=== PATIENT | male | born 1955 | race Caucasian/White ===

== ENCOUNTER 2017-06-05 10:44 | Inpatient (IN) | payer MEDICARE, OTHER ==
[2017-06-05] MEDS ORDERED: MIDAZOLAM 1 MG/ML 2 ML INJ (12:36)
[2017-06-05] MEDS ORDERED: GELATIN SIZE 100 SPONGE (13:43)
[2017-06-05] MEDS ORDERED: THROMBIN 5000 UNIT VIAL (13:43)
[2017-06-05] MEDS ORDERED: morphine 10 MG INJ (15:27)
[2017-06-05] MEDS ORDERED: hydrALAzine 20 MG INJ (15:31)
[2017-06-05] MEDS ORDERED: ROPIVACAINE 0.5 % 30 ML VIAL (15:51)
[2017-06-05] MEDS: ROPIVACAINE 0.5 % 30 ML VIAL (15:58)
[2017-06-05] MEDS: POLYMYXIN/BACITRACIN 1L IRRIG (15:58)
[2017-06-05] MEDS ORDERED: LIDOCAINE 2% (SDV) 5 ML INJ (16:28)
[2017-06-05] MEDS ORDERED: ETOMIDATE 20 MG INJ (16:28)
[2017-06-05] MEDS ORDERED: CEFAZOLIN 1 GM INJ (16:29)
[2017-06-05] MEDS ORDERED: GLYCOPYRROLATE 0.4 MG INJ (16:30)
[2017-06-05] MEDS ORDERED: NEOSTIGMINE 3 MG/3 ML SYRINGE (16:30)
[2017-06-05] MEDS ORDERED: ONDANSETRON 4 MG INJ (16:30)
[2017-06-05] MEDS ORDERED: ROCURONIUM 50 MG INJ (16:30)
[2017-06-05] MEDS ORDERED: NACL 0.9% 3 ML SYG IV (17:00)
[2017-06-05] MEDS ORDERED: NALOXONE (0.4 MG/ML) INJ IV (17:00)
[2017-06-05] MEDS ORDERED: HYDROCODONE/APAP (5/325) TAB PO (17:00)
[2017-06-05] MEDS ORDERED: DIPHENHYDRAMINE 50 MG INJ IV (17:30)
[2017-06-05] MEDS ORDERED: HYDROmorphONE (0.2 MG/ML) 10ML SYG IV ×2 (17:30)
[2017-06-05] MEDS ORDERED: METOCLOPRAMIDE 10 MG INJ IV (17:30)
[2017-06-05] MEDS ORDERED: FENTAnyl 50 MCG/ML VIAL IV (17:30)
[2017-06-05] MEDS ORDERED: MEPERIDINE 25 MG INJ IV (17:30)
[2017-06-05] MEDS ORDERED: LABETALOL HCL 20MG INJ IV (17:30)
[2017-06-05] MEDS: ONDANSETRON 4 MG INJ IV (17:36)
[2017-06-05] MEDS: HYDROmorphONE 0.2 MG/ML PCA IV (17:37)
[2017-06-05] MEDS ORDERED: DEXTROSE 50% 50 ML SYRINGE IV ×2 (18:00)
[2017-06-05] MEDS: INSULIN ASPART [NOVOLOG] 3 ML PEN SC ×2 (18:00→21:00)
[2017-06-05] MEDS ORDERED: GLUCOSE GEL 15 GRAM TUBE PO ×2 (18:00)
[2017-06-05] MEDS: metFORMIN 500 MG TAB PO (18:00)
[2017-06-05] MEDS ORDERED: GLUCAGON 1 MG INJ IM (18:00)
[2017-06-05] MEDS ORDERED: GLUCOSE GEL 15 GRAM TUBE BUCCAL (18:00)
[2017-06-05] MEDS: CEFAZOLIN 1 GM/50 ML (PMX) 50 ML IVPB (18:32)
[2017-06-06] MEDS: CEFAZOLIN 1 GM/50 ML (PMX) 50 ML IVPB ×3 (00:31→11:50)
[2017-06-06] MEDS: ACCU-CHEK XX (02:00)
[2017-06-06] MEDS: INSULIN ASPART [NOVOLOG] 3 ML PEN SC ×4 (08:05→21:00)
[2017-06-06] MEDS: metFORMIN 500 MG TAB PO ×2 (08:09→17:14)
[2017-06-06 08:27] LABS: ADD MAN DIFF? NO
[2017-06-06 08:32] LABS: BASOPHILS % 0.2 % (0.0-2.0); EOSINOPHILS % 0.4 % (0.0-7.0); HEMOGLOBIN 12.4 g/dl (14.0-18.0); LYMPHOCYTES # 1.3 10^3/ul (0.8-2.9); LYMPHOCYTES % 13.2 % (15.0-51.0); MEAN CORPUSCULAR HEMOGLOBIN 31.3 pg (29.0-33.0); MEAN CORPUSCULAR HGB CONC 35.4 g/dl (32.0-37.0); MEAN CORPUSCULAR VOLUME 88.4 fl (82.0-101.0); MEAN PLATELET VOLUME 12.3 fl (7.4-10.4); MONOCYTE # 0.9 10^3/ul (0.3-0.9); MONOCYTES % 8.7 % (0.0-11.0); NEUTROPHIL # 7.8 10^3/ul (1.6-7.5); NEUTROPHILS % 77.2 % (39.0-77.0); PLATELET COUNT 157 10^3/UL (140-415); RED BLOOD COUNT 3.96 10^6/ul (4.70-6.10); RED CELL DISTRIBUTION WIDTH 12.1 % (11.5-14.5)
[2017-06-06 08:48] LABS: ANION GAP 14 (8-16); BLOOD UREA NITROGEN 9 mg/dl (7-20); CALCIUM 8.6 mg/dl (8.4-10.2); CARBON DIOXIDE 29 mmol/L (21-31); CHLORIDE 102 mmol/L (97-110); CREATININE 0.63 mg/dl (0.61-1.24); GLUCOSE 168 mg/dl (70-220); POTASSIUM 3.7 mmol/L (3.5-5.1); SODIUM 141 mmol/L (135-144)
[2017-06-06] MEDS: HYDROmorphONE 0.2 MG/ML PCA IV ×2 (08:49→18:02)
[2017-06-07] MEDS: ACCU-CHEK XX (02:00)
[2017-06-07] MEDS: HYDROmorphONE 0.2 MG/ML PCA IV (07:09)
[2017-06-07] MEDS: metFORMIN 500 MG TAB PO ×2 (08:00→17:21)
[2017-06-07] MEDS: INSULIN ASPART [NOVOLOG] 3 ML PEN SC ×4 (08:00→22:04)
[2017-06-07] MEDS: INFLUENZA VIRUS VACCINE 0.5 ML (DISPENSING) IM* (09:00)
[2017-06-07] MEDS: PANTOPRAZOLE (EC) 40 MG TAB PO (09:06)
[2017-06-07 09:47] LABS: ADD MAN DIFF? NO
[2017-06-07 09:53] LABS: WHITE BLOOD COUNT 12.4 10^3/ul (4.8-10.8)
[2017-06-07 09:53] LABS: BASOPHILS % 0.1 % (0.0-2.0); EOSINOPHILS # 0.1 10^3/ul (0.0-0.5); EOSINOPHILS % 0.9 % (0.0-7.0); HEMATOCRIT 35.7 % (42.0-52.0); HEMOGLOBIN 12.5 g/dl (14.0-18.0); LYMPHOCYTES # 1.2 10^3/ul (0.8-2.9); MEAN CORPUSCULAR HEMOGLOBIN 30.8 pg (29.0-33.0); MEAN CORPUSCULAR VOLUME 87.9 fl (82.0-101.0); MEAN PLATELET VOLUME 12.7 fl (7.4-10.4); MONOCYTE # 1.2 10^3/ul (0.3-0.9); NEUTROPHIL # 9.8 10^3/ul (1.6-7.5); NEUTROPHILS % 78.7 % (39.0-77.0); PLATELET COUNT 160 10^3/UL (140-415); RED BLOOD COUNT 4.06 10^6/ul (4.70-6.10); RED CELL DISTRIBUTION WIDTH 11.6 % (11.5-14.5)
[2017-06-07 10:18] LABS: ANION GAP 16 (8-16); BLOOD UREA NITROGEN 8 mg/dl (7-20); CALCIUM 8.8 mg/dl (8.4-10.2); CARBON DIOXIDE 27 mmol/L (21-31); CHLORIDE 101 mmol/L (97-110); CREATININE 0.62 mg/dl (0.61-1.24); GLUCOSE 164 mg/dl (70-220); POTASSIUM 3.5 mmol/L (3.5-5.1); SODIUM 140 mmol/L (135-144)
[2017-06-07] MEDS: ONDANSETRON 4 MG INJ IV ×2 (11:11→20:28)
[2017-06-07] MEDS: METOPROLOL 5 MG INJ IV (11:11)
[2017-06-07] MEDS: DIGOXIN 0.25 MG TAB PO ×2 (11:11→13:15)
[2017-06-07] MEDS ORDERED: DILTIAZEM 25 MG INJ IV (14:00)
[2017-06-07 14:15] LABS: THYROID STIMULATING HORMONE 0.083 MIU/L (0.465-4.680)
[2017-06-07] MEDS: DIGOXIN 500 MCG INJ IV (14:17)
[2017-06-07] MEDS: DILTIAZEM 30 MG TAB PO ×2 (14:18→21:54)
[2017-06-07] MEDS ORDERED: HYDROmorphONE 0.5 MG/0.5 ML SYG IV (16:30)
[2017-06-07 17:45] LABS: ALANINE AMINOTRANSFERASE 80 IU/L (13-69); ALBUMIN 3.8 g/dl (3.3-4.9); ALKALINE PHOSPHATASE 82 IU/L (42-121); ANION GAP 18 (8-16); ASPARTATE AMINO TRANSFERASE 35 IU/L (15-46); BLOOD UREA NITROGEN 9 mg/dl (7-20); CALCIUM 8.8 mg/dl (8.4-10.2); CARBON DIOXIDE 23 mmol/L (21-31); CHLORIDE 103 mmol/L (97-110); CREATININE 0.64 mg/dl (0.61-1.24); GLUCOSE 162 mg/dl (70-220); POTASSIUM 3.6 mmol/L (3.5-5.1); SODIUM 140 mmol/L (135-144); TOTAL PROTEIN 6.5 g/dl (6.1-8.1)
[2017-06-07 17:46] LABS: TROPONIN-I 0.041 ng/ml (0.00-0.12)
[2017-06-07] MEDS: CYCLOBENZAPRINE 10 MG TAB PO (21:54)
[2017-06-08 01:25] LABS: TROPONIN-I 0.188 ng/ml (0.00-0.12)
[2017-06-08] MEDS: ACCU-CHEK XX (02:00)
[2017-06-08] MEDS: PANTOPRAZOLE (EC) 40 MG TAB PO (07:03)
[2017-06-08] MEDS: DILTIAZEM 30 MG TAB PO ×3 (07:04→22:18)
[2017-06-08 07:50] LABS: ANION GAP 15 (8-16); BLOOD UREA NITROGEN 9 mg/dl (7-20); CALCIUM 8.4 mg/dl (8.4-10.2); CARBON DIOXIDE 27 mmol/L (21-31); CHLORIDE 104 mmol/L (97-110); CREATININE 0.62 mg/dl (0.61-1.24); GLUCOSE 181 mg/dl (70-220); POTASSIUM 3.6 mmol/L (3.5-5.1); SODIUM 142 mmol/L (135-144)
[2017-06-08 07:57] LABS: CHOL/HDL RATIO 2.8 RATIO; HDL CHOLESTEROL 39 mg/dl (30-78); LDL CHOLESTEROL,CALCULATED 57 mg/dl; TRIGLYCERIDES 77 mg/dl (0-149)
[2017-06-08 07:57] LABS: CHOLESTEROL 111 mg/dl (100-200)
[2017-06-08 08:48] LABS: TROPONIN-I 0.149 ng/ml (0.00-0.12)
[2017-06-08] MEDS: CYCLOBENZAPRINE 10 MG TAB PO ×3 (08:53→22:18)
[2017-06-08] MEDS: metFORMIN 500 MG TAB PO ×2 (08:54→17:25)
[2017-06-08] MEDS: INSULIN ASPART [NOVOLOG] 3 ML PEN SC ×4 (08:56→21:00)
[2017-06-08] MEDS: DOCUSATE SODIUM 100 MG CAP PO (22:18)
[2017-06-09] MEDS: ACCU-CHEK XX (03:00)
[2017-06-09] MEDS: DILTIAZEM 30 MG TAB PO ×3 (05:44→21:18)
[2017-06-09] MEDS: PANTOPRAZOLE (EC) 40 MG TAB PO (05:44)
[2017-06-09 08:11] LABS: WHITE BLOOD COUNT 8.7 10^3/ul (4.8-10.8)
[2017-06-09 08:11] LABS: ADD MAN DIFF? NO; BASOPHILS % 0.3 % (0.0-2.0); EOSINOPHILS # 0.4 10^3/ul (0.0-0.5); EOSINOPHILS % 4.1 % (0.0-7.0); HEMATOCRIT 33.8 % (42.0-52.0); LYMPHOCYTES # 1.1 10^3/ul (0.8-2.9); LYMPHOCYTES % 12.9 % (15.0-51.0); MEAN CORPUSCULAR HEMOGLOBIN 30.6 pg (29.0-33.0); MEAN CORPUSCULAR HGB CONC 35.5 g/dl (32.0-37.0); MEAN CORPUSCULAR VOLUME 86.2 fl (82.0-101.0); MEAN PLATELET VOLUME 11.6 fl (7.4-10.4); MONOCYTE # 0.9 10^3/ul (0.3-0.9); NEUTROPHIL # 6.3 10^3/ul (1.6-7.5); NEUTROPHILS % 72.4 % (39.0-77.0); PLATELET COUNT 240 10^3/UL (140-415); RED BLOOD COUNT 3.92 10^6/ul (4.70-6.10); RED CELL DISTRIBUTION WIDTH 11.5 % (11.5-14.5)
[2017-06-09 08:33] LABS: ANION GAP 14 (8-16); BLOOD UREA NITROGEN 9 mg/dl (7-20); CALCIUM 8.9 mg/dl (8.4-10.2); CARBON DIOXIDE 28 mmol/L (21-31); CHLORIDE 104 mmol/L (97-110); CREATININE 0.57 mg/dl (0.61-1.24); GLUCOSE 176 mg/dl (70-220); POTASSIUM 3.7 mmol/L (3.5-5.1); SODIUM 142 mmol/L (135-144)
[2017-06-09] MEDS: ASPIRIN 325 MG TAB PO (08:34)
[2017-06-09] MEDS: DOCUSATE SODIUM 100 MG CAP PO ×2 (08:34→21:19)
[2017-06-09] MEDS: CYCLOBENZAPRINE 10 MG TAB PO ×3 (08:34→21:19)
[2017-06-09] MEDS: metFORMIN 500 MG TAB PO ×2 (08:35→17:29)
[2017-06-09] MEDS: INSULIN ASPART [NOVOLOG] 3 ML PEN SC ×4 (08:39→21:18)
[2017-06-10] MEDS: ACCU-CHEK XX (02:40)
[2017-06-10] MEDS: PANTOPRAZOLE (EC) 40 MG TAB PO (05:40)
[2017-06-10] MEDS: DILTIAZEM 30 MG TAB PO ×3 (05:40→20:58)
[2017-06-10 08:24] LABS: ADD MAN DIFF? NO
[2017-06-10] MEDS: INSULIN ASPART [NOVOLOG] 3 ML PEN SC ×5 (08:24→20:45)
[2017-06-10] MEDS: DOCUSATE SODIUM 100 MG CAP PO ×2 (08:25→20:57)
[2017-06-10] MEDS: CYCLOBENZAPRINE 10 MG TAB PO ×3 (08:25→20:57)
[2017-06-10] MEDS: ASPIRIN 325 MG TAB PO (08:25)
[2017-06-10 08:31] LABS: WHITE BLOOD COUNT 7.7 10^3/ul (4.8-10.8)
[2017-06-10 08:31] LABS: BASOPHILS % 0.4 % (0.0-2.0); EOSINOPHILS # 0.6 10^3/ul (0.0-0.5); EOSINOPHILS % 7.1 % (0.0-7.0); HEMATOCRIT 34.7 % (42.0-52.0); HEMOGLOBIN 12.3 g/dl (14.0-18.0); LYMPHOCYTES # 1.4 10^3/ul (0.8-2.9); LYMPHOCYTES % 17.8 % (15.0-51.0); MEAN CORPUSCULAR HEMOGLOBIN 30.6 pg (29.0-33.0); MEAN CORPUSCULAR HGB CONC 35.4 g/dl (32.0-37.0); MEAN CORPUSCULAR VOLUME 86.3 fl (82.0-101.0); MEAN PLATELET VOLUME 11.2 fl (7.4-10.4); MONOCYTE # 0.8 10^3/ul (0.3-0.9); MONOCYTES % 10.3 % (0.0-11.0); NEUTROPHIL # 4.9 10^3/ul (1.6-7.5); NEUTROPHILS % 63.8 % (39.0-77.0); PLATELET COUNT 290 10^3/UL (140-415); RED BLOOD COUNT 4.02 10^6/ul (4.70-6.10); RED CELL DISTRIBUTION WIDTH 11.7 % (11.5-14.5)
[2017-06-10] MEDS: metFORMIN 500 MG TAB PO ×2 (08:38→16:59)
[2017-06-10 08:42] LABS: HEMOGLOBIN A1C 8.2 % (0-5.9)
[2017-06-10 09:03] LABS: ANION GAP 15 (8-16); BLOOD UREA NITROGEN 13 mg/dl (7-20); CALCIUM 9.1 mg/dl (8.4-10.2); CARBON DIOXIDE 28 mmol/L (21-31); CHLORIDE 102 mmol/L (97-110); CREATININE 0.69 mg/dl (0.61-1.24); GLUCOSE 173 mg/dl (70-220); POTASSIUM 3.8 mmol/L (3.5-5.1); SODIUM 141 mmol/L (135-144)
[2017-06-10] MEDS: BISACODYL (EC) 5 MG TAB PO ×2 (16:59→20:58)
[2017-06-10] MEDS: INSULIN GLARGINE [LANtus] 3 ML PEN SC (20:59)
[2017-06-11] MEDS: ACCU-CHEK XX (02:00)
[2017-06-11] MEDS: PANTOPRAZOLE (EC) 40 MG TAB PO (05:23)
[2017-06-11] MEDS: DILTIAZEM 30 MG TAB PO ×2 (05:23→13:48)
[2017-06-11] MEDS: metFORMIN 500 MG TAB PO (08:43)
[2017-06-11] MEDS: CYCLOBENZAPRINE 10 MG TAB PO ×2 (08:43→12:32)
[2017-06-11] MEDS: ASPIRIN 325 MG TAB PO (08:43)
[2017-06-11] MEDS: DOCUSATE SODIUM 100 MG CAP PO (08:43)
[2017-06-11] MEDS: LINAGLIPTIN 5 MG TABLET PO (08:43)
[2017-06-11] MEDS: INSULIN ASPART [NOVOLOG] 3 ML PEN SC ×4 (08:45→12:33)
== END 2017-06-11 16:50 | disposition home or self-care (01) | DRG 477 ==
LOC: MS4 06-06 22:59 → REC 10:44 → MS4 18:07
PROVIDERS: Internal Medicine
PROC: 0QB00ZX Excision of Lumbar Vertebra, Open Approach, Diagnostic (ICD-10-PCS; principal; 2017-06-05 13:00)
PROC: 0QS03ZZ Reposition Lumbar Vertebra, Percutaneous Approach (ICD-10-PCS; 2017-06-05 13:00)
PROC: 0QU03JZ Supplement Lumbar Vertebra with Synthetic Substitute, Percutaneous Approach (ICD-10-PCS; 2017-06-05 13:00)
DX: M48.56XA Collapsed vertebra, not elsewhere classified, lumbar region, initial encounter for fracture (principal); I21.A1 Myocardial infarction type 2; E11.8 Type 2 diabetes mellitus with unspecified complications; I10 Essential (primary) hypertension; E11.9 Type 2 diabetes mellitus without complications; D64.9 Anemia, unspecified; M54.16 Radiculopathy, lumbar region; I48.91 Unspecified atrial fibrillation
CPT/HCPCS: 71045; 72100; 72131; 80048; 80053; 80061; 82962; 83036; 84439; 84443; 84484; 85025; 86850; 86900; 86901; 87086; 88304; 88305; 90686; 93005; 93306; 97116; 97161; 97530